=== PATIENT | male | born 1965 | race American Indian/Alaskan Native ===

== ENCOUNTER 2016-07-12 11:08 | Emergency (ER) | payer MEDICARE ==
--- NOTE | 2016-07-12 12:08 | Emergency Department Report ---
ED Psych HPI - General Chief Complaint: Psych Stated Complaint: 1013/AGGRESSIVE BEHAVIOR Time Seen by Provider: 07/12/16 11:48 Source: patient, police, RN notes reviewed, old records reviewed Mode of arrival: Ambulatory Limitations: Other - History of Present Illness Initial Comments: 51-year-old male presents to the emergency Department via law enforcement for mental health evaluation. Patient is refusing to answer questions, therefore history is obtained from outside records. Per report, the patient has a history of schizoaffective disorder, bipolar type. Patient has reportedly been having delusional thoughts and inappropriate behavior at his long-term. Per report, the patient has been inappropriately touching the nurse's breasts. Patient has also been attempting to urinate on the floor. He has verbally threatened a cloud security architect at the long-term. There has been no report of suicidal ideations. There are no other complaints. -: unknown Associated Psychiatric Symptoms: delusions History of same: Yes Quality: constant Improves With: none Worsens With: none Treatments Prior to Arrival: placed on mental he - Related Data Home Medications Medication Instructions Recorded Confirmed Last Taken No Known Home Medications [No 11/16/14 11/16/14 Unknown Reported Home Medications] Allergies Allergy/AdvReac Type Severity Reaction Status Date / Time No Known Allergies Allergy Verified 11/16/14 21:52 ED Review of Systems ROS: Stated complaint: 1013/AGGRESSIVE BEHAVIOR Other details as noted in HPI Comment: Unobtainable due to pts medical conditions ED Past Medical Hx - Past Medical History Previous Medical History?: Yes Hx Hypertension: No Hx CVA: No Hx Heart Attack/AMI: No Hx Congestive Heart Failure: No Hx Diabetes: No Hx Pulmonary Embolism: No Hx GERD: No Hx Liver Disease: No Hx Renal Disease: No Hx of Cancer: No Hx Sickle Cell Disease: No Hx Arthritis: No Hx Headaches / Migraines: No Hx Seizures: No Hx Kidney Stones: No Hx Psychiatric Treatment: No (paranoid schizophrenia and bipolar) Hx Asthma: No Hx COPD: No Hx Tuberculosis: No Hx Dementia: No Hx HIV: No Additional medical history: "Heart condition" - Surgical History Past Surgical History?: Yes Hx Coronary Stent: No Hx Open Heart Surgery: No Hx Pacemaker: No Hx Internal Defibrillator: No Hx Cholecystectomy: No Hx Appendectomy: No Hx Breast Surgery: No Additional Surgical History: rt wrist, both knees surgery. navel surgery - Family History Family history: no significant - Social History Smoking Status: Current Every Day Smoker Substance Use Type: Alcohol, Cocaine - Medications Home Medications: Home Medications Medication Instructions Recorded Confirmed Last Taken Type No Known Home Medications [No 11/16/14 11/16/14 Unknown History Reported Home Medications] ED Physical Exam - General Limitations: No Limitations General appearance: alert, in no apparent distress - Head Head exam: Present: atraumatic, normocephalic - Eye Eye exam: Present: normal appearance, PERRL, EOMI - ENT ENT exam: Present: normal exam, normal orophraynx, mucous membranes moist - Neck Neck exam: Present: normal inspection, full ROM. Absent: tenderness - Respiratory Respiratory exam: Present: normal lung sounds bilaterally. Absent: respiratory distress - Cardiovascular Cardiovascular Exam: Present: normal rhythm, tachycardia, normal heart sounds - GI/Abdominal GI/Abdominal exam: Present: soft, normal bowel sounds. Absent: distended, tenderness - Extremities Exam Extremities exam: Present: normal inspection, full ROM. Absent: tenderness - Back Exam Back exam: Present: normal inspection, full ROM. Absent: tenderness - Neurological Exam Neurological exam: Present: alert, oriented X3. Absent: motor sensory deficit - Skin Skin exam: Present: warm, dry, intact ED Course Vital Signs 07/12/16 07/12/16 11:13 12:11 Temperature 99.3 F Pulse Rate 132 H 113 H Respiratory 18 Rate Blood Pressure 150/98 O2 Sat by Pulse 99 Oximetry ED Medical Decision Making - Lab Data Result diagrams: 07/12/16 11:54 07/12/16 11:54 - EKG Data -: EKG Interpreted by Hi EKG shows normal: sinus rhythm, axis, intervals, QRS complexes, ST-T waves Rate: tachycardia - EKG Data When compared to previous EKG there are: previous EKG unavailable Interpretation: normal EKG - Medical Decision Making Form 1013 has been signed and placed on the patient's chart. Patient has been medically cleared. Patient has been evaluated by mental health and is currently awaiting inpatient placement. - Differential Diagnosis schizoaffective disorder Critical care attestation.: If time is entered above; I have spent that time in minutes in the direct care of this critically ill patient, excluding procedure time. ED Disposition Clinical Impression: Schizoaffective disorder, bipolar type Disposition: DC/TX PSY HOSP/PSY UNIT Is pt being admited?: No Condition: Stable Referrals: PRIMARY CARE, [Primary Care Provider] - 3-5 Days Time of Disposition: 13:07
[2016-07-12 12:17] LABS: Urine Drugs of Abuse Note Disclamer
[2016-07-12 12:18] LABS: Hematocrit 40.5 % (35.5-45.6); Hemoglobin 13.3 gm/dl (11.8-15.2); Mean Corpuscular HGB Conc 33 % (32-34); Mean Corpuscular Hemoglobin 31 pg (28-32); Mean Corpuscular Volume 94 fl (84-94); Platelet Count 192 K/mm3 (140-440); Red Blood Count 4.32 M/mm3 (3.65-5.03); Red Cell Distribution Width 18.4 % (13.2-15.2); White Blood Count 12.7 K/mm3 (4.5-11.0)
[2016-07-12 12:34] LABS: Anion Gap 22 mmol/L; BUN/Creatinine Ratio 11.42; Blood Urea Nitrogen 8 mg/dL (9-20); Calcium 9.1 mg/dL (8.4-10.2); Carbon Dioxide 19 mmol/L (22-30); Chloride 96.5 mmol/L (98-107); Glucose 320 mg/dL (75-100); Potassium 3.7 mmol/L (3.6-5.0); Sodium 134 mmol/L (137-145)
[2016-07-12 12:49] LABS: Bilirubin,Urine NEG (Negative); Blood,Urine NEG (Negative); Ketones,Urine TR mg/dL (Negative); Leukocyte Esterase,Urine NEG (Negative); Nitrite,Urine NEG (Negative); Protein,Urine <15 mg/dL mg/dL (Negative); RBC,Urine < 1.0 /HPF (0.0-6.0); Urobilinogen,Urine < 2.0 mg/dL (<2.0)
[2016-07-12 12:51] LABS: WBC,Urine < 1.0 /HPF (0.0-6.0)
[2016-07-12 13:08] LABS: Basophils % (Manual) 0 % (0.0-1.8); Blastocytes % (Manual) 0 %; Eosinophils % (Manual) 0 % (0.0-4.3)
[2016-07-12 13:11] LABS: Anisocytosis 1+; Diff Status Complete; Platelet Estimate Consistent w Auto
--- NOTE | 2016-07-13 11:11 | Consultation ---
History of Present Illness - Reason for Consult Consult date: 07/13/16 Reason for consult: Mental Health Evaluation Requesting physician: HARRIS SAHU - Chief Complaint Chief complaint: "I don't know why I'm here" - History of Present Psychiatric Illness 51-year-old male presents to the emergency Department via law enforcement for mental health evaluation. Today patient is calm, cooperative with a circumstantial thought process. He denies any inappropriate behavior at the personal custodial. Per the ER note, patient was inappropriate at his personal custodial by grabbing at female staff breasts and urinating on the floor. I asked him do he remember anything, he stated, "I just went to my doctor and she sent me here." He stated that he like living at his current personal custodial. During our conversation the patient had to be redirected during the assessment possibly responding to external stimuli. He stated receiving the haldol injection Saturday (07/09/2016) at [facility]. He also, stated he took Seroquel in the past. He denies SI/HI's, AVH's depression, or a poor appetite. He denies sleep disturbance. He denies being paranoid at this time. He stated living at "[facility]" in [place], [place]. He denies recreational drug and alcohol consumption (etoh). Medications and Allergies Allergies Allergy/AdvReac Type Severity Reaction Status Date / Time No Known Allergies Allergy Verified 11/16/14 21:52 Home Medications Medication Instructions Recorded Confirmed Last Taken Type Unobtainable 07/12/16 07/12/16 Unknown History Past psychiatric history - Past Medical History Past Medical History: other ("I have heart issues") Past Surgical History: No surgical history - past Psychiatric treatment and history Psych: Schizophrenia psychiatric treatment history: Inpatient [facility]. Patient not aware of a afam psy hx. Mental Status Exam - Vital signs Last Vital Signs Temp 98.5 F 07/13/16 10:21 Pulse 90 07/13/16 10:21 Resp 16 07/13/16 10:21 BP 146/94 07/13/16 10:21 Pulse Ox 100 07/13/16 10:21 - Exam Narrative exam: ROS (-) disorganized, (+) disheveled MSE: Appearance: calm, cooperative, disheveled Behavior: poor eye contact Speech: regular rate and tone Mood: "not depressed" Affect: congruent to mood Thought Process: circumstantial Thought Content: denies SI/HI's and AVH's, delusional Motor Activity: sitting up Cognition: A/Ox3 Insight: limited Judgment: limited Results Result Diagrams: 07/12/16 11:54 07/12/16 11:54 Abnormal lab results 07/12/16 07/12/16 Range/Units 11:54 11:54 WBC 12.7 H (4.5-11.0) K/mm3 RDW 18.4 H (13.2-15.2) % Seg Neuts % (Manual) 76.0 H (40.0-70.0) % Seg Neutrophils # Man 9.7 H (1.8-7.7) K/mm3 Monocytes # (Manual) 0.9 H (0.0-0.8) K/mm3 Sodium 134 L (137-145) mmol/L Chloride 96.5 L (98-107) mmol/L Carbon Dioxide 19 L (22-30) mmol/L BUN 8 L (9-20) mg/dL Creatinine 0.7 L (0.8-1.5) mg/dL Glucose 320 H (75-100) mg/dL All other labs normal. Assessment and Plan Assessment and plan: Impression: Unspecified Psychotic DO. 51-year-old male presents to the emergency Department via law enforcement for mental health evaluation. Today patient is calm, cooperative with a circumstantial thought process. He denies any inappropriate behavior at the personal custodial. Per the ER note, patient was inappropriate at his personal custodial by grabbing at female staff breasts and urinating on the floor. I asked him do he remember anything, he stated, "I just went to my doctor and she sent me here. He denies SI/HI's and AVH's. DD: Delusional DO Recommendation/Plan: Continue 1013 with possible placement to inpatient psy services. Start Seroquel 200 mg PO HS for psychosis and Cogentin 0.5 mg PO HS for EPS prevention. Gather collateral information from personal custodial.
--- NOTE | 2016-07-13 16:40 | Event Note ---
Date: 07/13/16 Discussed with patient possible metabolic side effects of Seroquel.
[2016-07-13] MEDS: COGENTIN PO SCH (22:10)
[2016-07-14] MEDS: COGENTIN PO SCH (23:20)
[2016-07-15] MEDS: COGENTIN PO SCH (22:00)
--- NOTE | 2016-07-16 08:18 | Progress Note ---
Subjective - Reason for Consult Consult date: 07/16/16 Reason for consult: Psyhiatry Follow-up - Chief Complaint Chief complaint: "I am ready to go home" 51-year-old male presents to the emergency Department via law enforcement for mental health evaluation. Today patient is calm and cooperative during assessment. He is anxious about leaving and returning to his personal chcf. He denies any side effects from his psy medications. He denies SI/HI's, AVH's, poor appetite, sleep disturbance or depression. Per the staff submarine warfare officer, no inappropriate behavior noted. Mental Status Exam - Vital signs Last Vital Signs Temp 98.8 F 07/15/16 22:00 Pulse 98 H 07/15/16 22:00 Resp 18 07/15/16 22:00 BP 142/98 07/15/16 22:00 Pulse Ox 98 07/15/16 22:00 - Exam Narrative exam: MSE: Appearance: calm, cooperative Behavior: good eye contact Speech: regular rate and tone Mood: "I feel good" Affect: congruent to mood Thought Process: circumstantial Thought Content: denies SI/HI's and AVH's Motor Activity: sitting up Cognition: A/Ox3 Insight: fair Judgment: fair Assessment and Plan Impression: 51-year-old male presents to the emergency Department via law enforcement for mental health evaluation. Today patient is calm and cooperative during assessment. He is anxious about leaving and returning to his personal chcf. He denies any side effects from his psy medications. He denies SI/HI' s, AVH's, poor appetite, sleep disturbance or depression. Recommendation/Plan: Rescind 1013. Continue Seroquel 200 mg PO HS for mood/ psychosis and Cogentin 0.5 mg PO HS for EPS prevention. Cad Engineer involvement, patient can not return to personal chcf. In the process of finding patient placement.
[2016-07-16] MEDS: COGENTIN PO SCH (21:58)
--- NOTE | 2016-07-17 08:27 | Progress Note ---
Subjective - Reason for Consult Consult date: 07/17/16 Reason for consult: Psychiatry Follow-up - Chief Complaint Chief complaint: "When will I be leaving" 51-year-old male presents to the emergency Department via law enforcement for mental health evaluation. Today patient is calm and cooperative during assessment. He was adamant about telling me where to send him. He stated a longterm multiple times in [place], [place]. After we finished my conversation , he followed me to another room to tell me the name of the nursing again. I had to redirect the patient back to his room. He denies SI/HI's, AVH's, depression, sleep disturbance or a poor appetite. Per the staff midwife/apprenticeship director, no inappropriate behavior noted. Patient denies any side effects from psy medications. Mental Status Exam - Vital signs Last Vital Signs Temp 98 F 07/17/16 06:33 Pulse 84 07/17/16 06:33 Resp 18 07/17/16 06:33 BP 107/71 07/17/16 06:33 Pulse Ox 99 07/17/16 06:33 - Exam Narrative exam: MSE: Appearance: calm, cooperative Behavior: good eye contact Speech: regular rate and tone Mood: "I am well" Affect: congruent to mood Thought Process: circumstantial Thought Content: denies SI/HI's and AVH's Motor Activity: sitting up Cognition: A/Ox3 Insight: limited Judgment: limited Assessment and Plan Impression: 51-year-old male presents to the emergency Department via law enforcement for mental health evaluation. Today patient is calm and cooperative during assessment. He was adamant about telling me where to send him. He stated a longterm multiple times in [place], [place]. After we finished my conversation, he followed me to another room to tell me the name of the nursing again. He denies SI/HI's and AVH's. Recommendation/Plan: Increase Seroquel to 300 mg PO HS for mood/psychosis and Cogentin 0.5 mg PO HS for EPS prevention. Product Merchandiser involvement, patient can not return to personal assisted. In the process of finding patient placement.
[2016-07-17 10:58] VITALS: BP 118/76
== END 2016-07-17 15:19 ==
LOC: ED 11:08 → EEVIPCON 11:08 → ED 07-17 15:19
DX: F25.0 Schizoaffective disorder, bipolar type (principal); F17.200 Nicotine dependence, unspecified, uncomplicated; F14.90 Cocaine use, unspecified, uncomplicated
CPT/HCPCS: 36415; 80048; 80307; 81001; 85007; 85025; 93005; 93010; 99285; G0480; 80320